=== PATIENT | female | born 1980 | race Caucasian/White ===

== ENCOUNTER → 2020-02-10 17:54 | Outpatient (CLI) | payer BC, SELFPAY ==
--- NOTE | ~2020-02-10 | XR_ITS ---
EXAMINATION: XR thoracic spine 3V EXAM DATE: 02/10/2020 19:30 INDICATION: Chronic mid back pain. TECHNIQUE: Frontal and lateral projections of the thoracic spine as well as lateral swimmers projecti on of the upper thoracic spine for interpretation. There is no prior study for comparison. FINDINGS: Linear right basilar subsegmental atelectasis. There is mild mid and lower thoracic disc d isease. The vertebral body and disc heights are otherwise well maintained. The vertebral bodies are a ligned in the AP dimension. No endplate change. There are no osteoblastic or osteolytic lesions ident ified. Paraspinal soft tissue is unremarkable. IMPRESSION: 1. Mild mid and lower thoracic spondylosis. 2. Right basilar subsegmental atelectasis. Reviewed, dictated and finalized at location A.
--- NOTE | ~2020-02-10 | XR_ITS ---
EXAMINATION: XR wrist LT min 3V EXAM DATE: 02/10/2020 19:30 INDICATION: No known recent injury provided at this time. Pain of the left wrist. TECHNIQUE: Left wrist frontal, frontal with ulnar deviation, oblique and lateral projections obtained and reviewed. There is no prior study for comparison. FINDINGS: Left wrist scapholunate joint space is maintained. There are no bony erosions identified. There are no acute fractures or dislocations identified. There is no subcutaneous gas. The soft tis blanche is unremarkable. There are no radiopaque foreign bodies. IMPRESSION: 1. Unremarkable left wrist exam. Reviewed, dictated and finalized at location A.
--- NOTE | ~2020-02-10 | XR_ITS ---
EXAMINATION: XR wrist RT min 3V EXAM DATE: 02/10/2020 19:30 INDICATION: No known recent injury provided at this time. Pain of the right wrist. TECHNIQUE: Right wrist frontal, frontal with ulnar deviation, oblique and lateral projections obtain ed and reviewed. There is no prior study for comparison. FINDINGS: Right wrist scapholunate joint space is maintained. There are no acute fractures or disloca tions identified. There is no subcutaneous gas. The soft tissue is unremarkable. There are no rad iopaque foreign bodies. There are no bony erosions identified. IMPRESSION: 1. Unremarkable right wrist exam. Reviewed, dictated and finalized at location A.
--- NOTE | ~2020-02-10 | XR_ITS ---
EXAMINATION: XR_RIBSBICXR1_CR EXAM DATE: 02/10/2020 19:30 INDICATION: Bilateral rib pain. TECHNIQUE: Frontal projection of the upper left ribs, frontal projection of the lower left ribs, obli que projection of the left ribs. Frontal projection of the upper right ribs, frontal projection of t he lower right ribs, oblique projection of the right ribs, frontal chest x-ray(s) for interpretation. There is no prior study for comparison. FINDINGS: There are no displaced acute rib fractures identified. There are no osteoblastic or osteo lytic lesions identified. Right basilar linear opacities consistent with subsegmental atelectasis. Th e lungs are otherwise clear. There is no pneumothorax suspected. There are no pleural effusions. Card iomediastinal silhouette is normal. IMPRESSION: 1. Unremarkable ribs. 2. Right basilar subsegmental linear atelectasis. Reviewed, dictated and finalized at location A.
== END ==
PROVIDERS: PCP Physician Assistant; Visit Provider Chiropractor
DX: M47.814 Spondylosis without myelopathy or radiculopathy, thoracic region (principal); J98.11 Atelectasis; M25.531 Pain in right wrist; M25.532 Pain in left wrist
CPT/HCPCS: 71111; 72072; 73110

== ENCOUNTER → 2020-04-23 11:41 | Outpatient (CLI) | payer BC, SELFPAY ==
--- NOTE | ~2020-04-23 | XR_ITS ---
EXAMINATION: XR knee LT 3V DATE: 04/23/2020 12:22 INDICATION: Arthralgia TECHNIQUE: Three views of the left knee were obtained. COMPARISON: 12/14/2017 FINDINGS: Alignment is normal. No fracture or osteochondral lesion. There is mild tricompartmental os teoarthritis characterized by tiny marginal osteophytes. No joint effusion/synovitis. Soft tissues a re unremarkable. IMPRESSION: 1. Mild osteoarthritis without acute osseous abnormality. Reviewed, dictated and finalized at location A. STRING WINDER
--- NOTE | ~2020-04-23 | XR_ITS ---
EXAMINATION: XR knee RT 3V DATE: 04/23/2020 12:22 INDICATION: Arthralgia TECHNIQUE: Three views of the left knee were obtained. COMPARISON: None. FINDINGS: Alignment is normal. No fracture or osteochondral lesion. There is mild tricompartmental os teoarthritis characterized by tiny marginal osteophytes. No joint effusion/synovitis. Soft tissues a re unremarkable. IMPRESSION: 1. Mild right knee osteoarthritis. Reviewed, dictated and finalized at location A. R SPOOLER
== END ==
PROVIDERS: Visit Provider Physician Assistant
DX: M17.0 Bilateral primary osteoarthritis of knee (principal)
CPT/HCPCS: 73562

== ENCOUNTER 2020-08-30 10:07 | Outpatient (CLI) | payer BC, SELFPAY ==
--- NOTE | 2020-08-30 12:00 | NEURO_ITS ---
Impression: # Complains of tingling and numbness in both hands. # Left mild Carpal Tunnel Syndrome. # No ulnar neuropathy. # Normal needle/EMG exam. # Clinical correlation recommended. Nerve Conduction Studies Anti Sensory Summary Table Stim Site NR Peak (ms) P-T Amp (?V) Site1 Site2 Delta-P (ms) Dist (cm) Boni (m/s) Left Median Anti Sensory (2-3nd Digit) Wrist 3.3 59.3 Wrist 2-3nd Digit 3.3 14.0 42 Wrist 3.3 64.8 Wrist 2-3nd Digit 3.3 14.0 42 Right Median Anti Sensory (2-3nd Digit) Wrist 3.9 12.6 Wrist 2-3nd Digit 3.9 14.0 36 Wrist 4.6 49.5 Wrist 2-3nd Digit 3.9 14.0 36 Left Radial Anti Sensory (Base 1st Digit) Wrist 2.4 25.0 Wrist Base 1st Digit 2.4 0.0 Right Radial Anti Sensory (Base 1st Digit) Wrist 2.4 24.4 Wrist Base 1st Digit 2.4 0.0 Left Ulnar Anti Sensory (5th Digit) Wrist 2.4 41.6 Wrist 5th Digit 2.4 14.0 58 Right Ulnar Anti Sensory (5th Digit) Wrist 2.3 53.9 Wrist 5th Digit 2.3 14.0 61 Motor Summary Table Stim Site NR Onset (ms) O-P Amp (mV) Site1 Site2 Delta-0 (ms) Dist (cm) Boni (m/s) Left Median Motor (Abd Poll Brev) Wrist 3.8 1.9 Elbow Wrist 4.4 26.0 59 Elbow 8.2 1.8 Right Median Motor (Abd Poll Brev) Wrist 3.2 4.9 Elbow Wrist 5.0 27.0 54 Elbow 8.2 3.1 Left Ulnar Motor (Abd Dig Minimi) Wrist 2.2 9.6 A Elbow Wrist 5.0 30.0 60 A Elbow 7.2 3.1 Right Ulnar Motor (Abd Dig Minimi) Wrist 2.3 9.0 A Elbow Wrist 4.7 27.0 57 A Elbow 7.0 3.6 F Wave Studies NR F-Lat (ms) L-R F-Lat (ms) Left Median (Mrkrs) (Abd Poll Brev) 29.01 0.76 Right Median (Mrkrs) (Abd Poll Brev) 29.77 0.76 Left Ulnar (Mrkrs) (Abd Dig Min) 27.02 1.47 Right Ulnar (Mrkrs) (Abd Dig Min) 25.55 1.47 EMG Side Muscle Nerve Root Ins Act Fibs Amp Dur Recrt Comment Right 1stDorInt Ulnar C8-T1 Nml Nml Nml Nml Nml Right Ext Indicis Radial (Post Int) C7-8 Nml Nml Nml Nml Nml Right Ext Digitorum Radial (Post Int) C7-8 Nml Nml Nml Nml Nml Right BrachioRad Radial C5-6 Nml Nml Nml Nml Nml Right PronatorTeres Median C6-7 Nml Nml Nml Nml Nml Right Abd Poll Brev Median C8-T1 Nml Nml Nml Nml Nml Left 1stDorInt Ulnar C8-T1 Nml Nml Nml Nml Nml Left Ext Indicis Radial (Post Int) C7-8 Nml Nml Nml Nml Nml Left Ext Digitorum Radial (Post Int) C7-8 Nml Nml Nml Nml Nml Left BrachioRad Radial C5-6 Nml Nml Nml Nml Nml Left PronatorTeres Median C6-7 Nml Nml Nml Nml Nml Left Abd Poll Brev Median C8-T1 Nml Nml Nml Nml Nml MTDD
== END 2020-08-30 10:08 | disposition home or self-care (01) ==
LOC: ANHNEURO 10:10
PROVIDERS: PCP Physician Assistant; Visit Provider Physician Assistant
DX: R20.0 Anesthesia of skin (principal); R20.2 Paresthesia of skin; G56.02 Carpal tunnel syndrome, left upper limb
CPT/HCPCS: 95886; 95911

== ENCOUNTER → 2020-12-15 08:53 | Outpatient (CLI) | payer BC, SELFPAY ==
--- NOTE | ~2020-12-15 | MM_ITS ---
EXAMINATION: MM screening tobi BI w rafael HISTORY: Screening mammogram TECHNIQUE: Craniocaudal and mediolateral oblique 3-D tomosynthesis images were obtained and synthetic 2-D images were generated. CAD analysis was submitted and interpreted. COMPARISON: No prior mammogram is available for comparison at this institution. BREAST PARENCHYMAL COMPOSITION: The breasts are almost entirely fatty. FINDINGS: There is no evidence of suspicious mass, calcification, or architectural distortion to sugg est malignancy in either breast. IMPRESSION: 1. No mammographic evidence of malignancy. 2. Recommend routine screening mammography in one year. BI-RADS Category 1: Negative Reviewed, dictated and finalized at location A.
== END ==
PROVIDERS: PCP Physician Assistant
DX: Z12.31 Encounter for screening mammogram for malignant neoplasm of breast (principal)
CPT/HCPCS: 77063; 77067

== ENCOUNTER → 2021-07-16 15:14 | Outpatient (CLI) | payer BC, SELFPAY ==
--- NOTE | ~2021-07-16 | CT_ITS ---
EXAMINATION: CT abdomen pelvis w con DATE: 07/16/2021 15:42 INDICATION: Left lower quadrant pain. TECHNIQUE: Computed tomography (CT) of the abdomen and pelvis was performed with 100 cc Omnipaque 350 intravenous contrast. The dose-length product was 1052.11 mGy-cm. Automated exposure control and ite rative reconstruction technique were employed. COMPARISON: None. FINDINGS: Heart size is normal. No significant pleural or pericardial effusion. No significant vascul ar abnormality. No lymphadenopathy. Small hiatal hernia. The liver, spleen, pancreas, adrenal glands and kidneys are unremarkable. Normal appendix. No free ai r or free fluid. No evidence for diverticulitis. No lymphadenopathy. No free air or free fluid. Small fat-containing umbilical hernia. No acute osseous abnormality. IMPRESSION: 1. No acute abdominal abnormality. Reviewed, dictated and finalized at location B.
== END ==
PROVIDERS: Visit Provider Physician Assistant
DX: R10.32 Left lower quadrant pain (principal)
CPT/HCPCS: 74177; Q9967

== ENCOUNTER → 2021-09-16 17:28 | Outpatient (CLI) | payer BC, SELFPAY ==
--- NOTE | ~2021-09-16 | XR_ITS ---
EXAMINATION: XR chest 2V Exam Date/Time: 09/16/2021 17:36 CDT CLINICAL HISTORY: Cough Comparison: 12/17/10. RESULT: Lines, tubes, and devices: None. Lungs and pleura: Clear. Cardiomediastinal silhouette: Stable cardiomediastinal silhouette. Other: No acute osseous or upper abdominal finding. IMPRESSION: No acute cardiopulmonary process Reviewed, dictated and finalized at location K.
== END ==
PROVIDERS: PCP Physician Assistant; Visit Provider Physician Assistant
DX: R05.1 Acute cough (principal)
CPT/HCPCS: 71046

== ENCOUNTER → 2022-06-12 14:07 | Outpatient (CLI) | payer BC, SELFPAY ==
--- NOTE | ~2022-06-12 | MM_ITS ---
EXAMINATION: MM screening tobi BI w rafael HISTORY: Screening mammogram TECHNIQUE: Craniocaudal and mediolateral oblique 3-D tomosynthesis images were obtained and synthetic 2-D images were generated. CAD analysis was submitted and interpreted. COMPARISON: 12/15/2020 bilateral screening mammogram BREAST PARENCHYMAL COMPOSITION: The breasts are almost entirely fatty. FINDINGS: There is no evidence of suspicious mass, calcification, or architectural distortion to sugg est malignancy in either breast. There has been no suspicious interval change. IMPRESSION: 1. No mammographic evidence of malignancy. 2. Recommend routine screening mammography in one year. BI-RADS Category 1: Negative Reviewed, dictated and finalized at location A. K TURNER
== END ==
PROVIDERS: PCP Physician Assistant
DX: Z12.31 Encounter for screening mammogram for malignant neoplasm of breast (principal)
CPT/HCPCS: 77063; 77067

== ENCOUNTER 2023-06-01 08:24 | Emergency (ER) | payer OTHER, SELFPAY ==
--- NOTE | ~2023-06-01 | CT_ITS ---
Clinical Indication: Chest pain CT Scan of the Chest with Contrast: Technique: Contiguous sections were acquired throughout the chest after intravenous administration of 100 cc of Omnipaque 350. Dose reduction technique was used on this scan by utilizing automated expos ure control and iterative reconstruction technique. The dose-length product (DLP) was 1132.57 mGy-cm. Findings: There is no evidence of any significant mediastinal, hilar or axillary lymphadenopathy. There is no f illing defect in the pulmonary arterial tree to suggest pulmonary embolus. There is no evidence of ao rtic dissection or aneurysm. There is no evidence of pleural or pericardial effusion. The lungs are clear. No pulmonary nodules or infiltrates are noted. Images through the upper abdomen reveal splenomegaly. Impression: No evidence of pulmonary embolus, aortic dissection, or aortic aneurysm. Clear lungs. Splenomegaly, of uncertain etiology. Reviewed, dictated and finalized at [facility]. REPAIRER Impression: No evidence of pulmonary embolus, aortic dissection, or aortic aneurysm. Clear lungs. Splenomegaly, of uncertain etiology.
--- NOTE | ~2023-06-01 | XR_ITS ---
Clinical Indication: Shortness of breath PA and lateral views of the chest: Comparison: 09/16/2021 Findings: The lungs are clear, without evidence of focal consolidation or pleural effusion. Cardiome diastinal silhouette is within normal limits. Bones and soft tissues are unremarkable. Impression: Normal chest. Reviewed, dictated and finalized at [facility]. HALMIC MEDICAL TECHNOLOGIST Impression: Normal chest.
[2023-06-01 08:29] VITALS: BP 179/88; PULSE 84; RESP 19; TEMP 36.3; O2SAT 100
--- NOTE | 2023-06-01 08:36 | ECG_ITS ---
Measurements Intervals [place] Rate: 69 P: 67 AL: 138 QRS: 24 QRSD: 91 T: 36 QT: 379 QTc: 406 Interpretive Statements SINUS RHYTHM WITH SINUS ARRHYTHMIA BASELINE ARTIFACT- I, II, III, AVF NORMAL ECG NO PREVIOUS ECG AVAILABLE FOR COMPARISON Electronically Signed On 06-01-2023 8:52:28 CLERICAL ADVISER by Nima Bradford D.O.
[2023-06-01 08:42] VITALS: O2SAT 100
[2023-06-01] MEDS: ASPIRIN 81 MG CHEWABLE TABLET 324 MG PO (08:45)
[2023-06-01 09:00] VITALS: PULSE 75
[2023-06-01 09:05] LABS: Basophils Percent Auto 0.1 % (0.2-1.2); Eosinophils Percent Auto 0.1 % (0-4.4); Hematocrit 38.6 % (37.0-47.0); Hemoglobin 11.9 g/dL (12.0-15.0); Immature Granulocyte Absolute 0.06 K/mm3 (0.00-0.031); Immature Granulocyte Percent A 0.8 % (0-0.5); Lymphocytes Absolute Auto 2.01 K/mm3 (0.9-3.2); Lymphocytes Percent Auto 27.1 % (18.3-44.2); Mean Corpuscular HGB Conc 30.8 g/dl (32-36); Mean Corpuscular Hemoglobin 24.9 pg (26-34); Mean Corpuscular Volume 80.8 fl (80-100); Mean Platelet Volume 10.4 fl (7.4-10.4); Monocytes Absolute Auto 0.9 K/mm3 (0.1-0.6); Neutrophils Absolute Auto 4.4 K/mm3 (1.3-6.7); Neutrophils Percent Auto 59.9 % (45.5-73.1); Platelet Count Result 324 k/mm3 (150-375); Red Blood Count 4.78 M/mm3 (4.2-5.4); Red Cell Distribution Width 14.1 % (11.5-14.5); White Blood Count 7.4 K/mm3 (4.5-10.0)
[2023-06-01 09:15] LABS: INR 0.9; Prothrombin Time 12.8 Seconds (11.1-14.7)
[2023-06-01 09:16] LABS: Partial Thromboplastin Time 31.4 SECONDS (22.3-36.8)
[2023-06-01 09:19] LABS: Alanine Aminotransferase 31 U/L (6-35); Albumin Level 4.1 g/dL (3.5-5.1); Alkaline Phosphatase 88 U/L (38-126); Anion Gap 5 mmol/L (8-16); Aspartate Amino Transferase 35 U/L (14-36); Bilirubin,Total 0.6 mg/dL (0.2-1.3); Blood Urea Nitrogen 18 mg/dL (7-17); Calcium 8.9 mg/dL (8.4-10.2); Carbon Dioxide 27 mmol/L (22-30); Chloride 105 mmol/L (98-107); Estimated CRCL calculation 139 ml/min; Estimated Glomerular Filt Rate > 60; Glucose 110 mg/dL (65-110); Lipase 174 U/L (23-300); Potassium 3.9 mmol/L (3.4-5.0); Sodium 137 mmol/L (137-145)
[2023-06-01 09:31] LABS: Troponin I < 0.012 ng/mL (0.000-0.034)
--- NOTE | 2023-06-01 09:43 | ED.CHESTPAIN ---
HPI - Chest Pain General Chief Complaint: Chest Pain Stated Complaint: chest pain Time Seen by Provider: 06/01/23 08:53 History of Present Illness HPI narrative: 43-year-old female presenting to the emergency department for evaluation of chest pain. 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 Patient denies any associated nausea vomiting or diaphoresis with this. Patient denies any prior history of PE or DVT, patient denies any prior cardiac history. Patient denies any associated abdominal pain. Patient was treated with aspirin and at time of evaluation patient states that she has no current chest pain or chest tightness and has no associated shortness of breath. Patient denies hypertension, high cholesterol and diabetes Related Data Allergies Allergy/AdvReac Type Severity Reaction Status Date / Time morphine AdvReac Nausea Verified 06/01/23 08:25 Review of Systems Review of Systems: All systems reviewed & are unremarkable except as noted in HPI and below Exam Narrative: APPEARANCE: Well appearing, no pain, no distress, well-nourished. HEAD: normocephalic, atraumatic. EYES: PERRLA/EOMI, conjunctivae clear. NOSE: Normal no drainage EARS:TMS clear with good light reflex. THROAT: Pharynx clear, no exudate. NECK: Supple. No adenopathy, no masses. RESPIRATORY: Airway patent, respirations nonlabored. Clear to auscultation bilaterally, no rales, rhonchi, wheezing. CARDIOVASCULAR: Regular rate and rhythm without murmurs rubs or gallops. ABDOMINAL: Soft, nontender, nondistended, normal bowel sounds MUSCULOSKELETAL: Moves all extremities. Strength/ROM intact, No edema, No calf tenderness. NEURO: Alert. Cranial nerves II through XII intact. Grossly intact SKIN: Warm, dry. Normal Color Course Course Emergency Course: 43-year-old female presented emergency department for evaluation of chest pain. Patient is afebrile with no leukocytosis and a stable hemoglobin patient's initial CMP had no acute abnormalities the patient's troponin was negative, patient had no elevation of her lipase. Chest x-ray showed normal chest. The EKG showed normal sinus rhythm with sinus arrhythmia with no evidence of infarct. Patient's D-dimer is elevated at 1.14 patient had negative serial troponins. CTA chest was ordered due to the elevated dimer and showed no evidence of pulmonary embolism. Patient was updated results of her workup patient was encouraged close follow-up with her primary care physician for additional outpatient cardiac testing. Vital Signs Vital signs: Vital Signs Temperature 97.4 F L 06/01/23 08:29 Pulse Rate 84 06/01/23 08:29 Respiratory Rate 19 06/01/23 08:29 Blood Pressure 179/88 H 06/01/23 08:29 Pulse Oximetry 100 06/01/23 08:29 Oxygen Delivery Room Air 06/01/23 08:29 Temperature 97.4 F L 06/01/23 08:29 Pulse Rate 74 06/01/23 11:12 Respiratory Rate 18 06/01/23 11:12 Blood Pressure 160/99 H 06/01/23 11:12 Pulse Oximetry 100 06/01/23 11:12 Oxygen Delivery Room Air 06/01/23 08:42 MDM - Chest Pain Differential Diagnosis Differential diagnosis: Likely pneumothorax, stable angina, unstable angina pectoris, atypical chest pain, st elevation myocardial infarction, costochondritis, chest pain and biliary colic Lab Data Attestation: I reviewed the patient's lab results. 06/01/23 08:58 06/01/23 08:58 Labs: Lab Results 06/01/23 06/01/23 Range/Units 08:58 11:48 WBC 7.4 (4.5-10.0) K/mm3 RBC 4.78 (4.2-5.4) M/mm3 Hgb 11.9 L (12.0-15.0) g/dL Hct 38.6 (37.0-47.0) % MCV 80.8 (80-100) fl MCH 24.9 L (26-34) pg MCHC 30.8 L (32-36) g/dl RDW 14.1 (11.5-14.5) % Plt Count 324 (150-375) k/mm3 MPV 10.4 (7.4-10.4) fl Immature Gran % (Auto) 0.8 H (0-0.5) % Neut % (Auto) 59.9 (45.5-73.1) % Lymph % (Auto) 27.1 (18.3-44.2) % [place] % (Auto) 12.0 H (2
[2023-06-01 09:46] VITALS: BP 175/103; PULSE 69; RESP 18; O2SAT 99
[2023-06-01 09:55] LABS: D Dimer 1.14 ug/mL (<0.48)
[2023-06-01 11:12] VITALS: BP 160/99; PULSE 74; RESP 18; O2SAT 100
--- NOTE | 2023-06-01 12:10 | ECG_ITS ---
Measurements Intervals [place] Rate: 69 P: 53 [place]: 135 QRS: 17 QRSD: 92 T: 22 QT: 397 QTc: 428 Interpretive Statements SINUS RHYTHM POSSIBLE LEFT ATRIAL ENLARGEMENT BASELINE ARTIFACT- I, II BORDERLINE ECG COMPARED TO ECG 06/01/2023 08:41:03 NO SIGNIFICANT CHANGES Electronically Signed On 06-01-2023 13:09:52 [facility] by Nima Bradford D.O.
[2023-06-01 12:21] LABS: Troponin I < 0.012 ng/mL (0.000-0.034)
== END 2023-06-01 12:56 | disposition home or self-care (01) ==
PROVIDERS: Emergency Provider Emergency Medicine; PCP Physician Assistant
DX: R07.89 Other chest pain (principal)
CPT/HCPCS: 36415; 71046; 71275; 80053; 81025; 83690; 84484; 85025; 85380; 85610; 85730; 93005; 99284; A9270; Q9967

== ENCOUNTER 2023-08-27 08:19 | Emergency (ER) | payer OTHER, SELFPAY ==
--- NOTE | 2023-08-27 08:42 | ED.GENADULT ---
HPI - General Adult General Chief complaint: Upper Respiratory Infection Stated complaint: SORE THROAT/HEADACHE/BODY ACHES/FEVER/CHILLS Source: patient, RN notes reviewed and old records reviewed Mode of arrival: ambulatory Limitations: no limitations History of Present Illness HPI narrative: 43-year-old female presents to [facility] with complaints fever, chills, myalgia, sore throat that started on Thursday. Patient states vomited 1 time. Patient taking home medications with little relief. Related Data Home Medications Medication Instructions Recorded Confirmed cetirizine 10 mg tablet (Zyrtec) 10 mg PO DAILY 08/27/23 08/27/23 escitalopram oxalate 20 mg tablet mg 08/27/23 loratadine 10 mg tablet (Claritin) mg 08/27/23 meloxicam 15 mg tablet mg 08/27/23 montelukast 10 mg tablet mg 08/27/23 omeprazole magnesium 20 mg 20 mg PO DAILY 08/27/23 08/27/23 tablet,delayed release (Prilosec OTC) Allergies Allergy/AdvReac Type Severity Reaction Status Date / Time morphine AdvReac Nausea Verified 08/27/23 08:54 Review of Systems Constitutional: Constitutional: Reports no additional constitutional complaints, Reports body ache(s), Denies chills, Reports fatigue, Reports fever(s) and Denies headache(s) Eyes: Eyes: Reports no additional eye complaints and Denies blurry vision ENT: Reports system reviewed and no additional complaints, except as documented, Denies vertigo, Denies dizziness, Denies ear discharge, Denies otalgia, Denies facial pain, Denies headache(s), Denies nasal congestion, Reports nasal discharge, Denies sinus pain, Denies sinus pressure and Reports sore throat Cardiovascular: Cardiovascular: Reports no additional cardiovascular complaints, Denies chest pain, Denies chest pain at rest, Denies rapid heart rate and Denies dyspnea Respiratory: Respiratory: Reports no additional respiratory complaints, Denies chest congestion, Reports cough, Denies pain on inspiration, Denies pain with cough and Denies dyspnea Gastrointestinal: Gastrointestinal: Denies abdominal pain, Denies diarrhea, Reports nausea and Reports vomiting Integumentary/Breasts: Skin/Breast: Denies rash Neurologic: Reports system reviewed and no additional complaints, except as documented, Denies vertigo, Denies dizziness and Denies headache(s) Endocrine: Endocrine: Denies fatigue PMFSH Comments At the time of my signature, I reviewed and agree with the nursing past medical, surgical, social, and family history. There is no relevant family history pertinent to the patient complaint. Exam Const: General: cooperative, healthy appearing, no acute distress and well nourished Nutritional Appearance: well nourished Orientation/consciousness: patient oriented x3 Limitations: no limitations HENMT: Head: normal to inspection and normocephalic Ears: external ears normal, TM's normal bilaterally, EAC's normal and mastoids normal Face/Nose/Sinus: Normal nasal mucous membranes and turbinates present, normal facial exam and sinuses nontender Face and sinus: normal facial exam Mouth: Yes Normal oral and palatal mucosa present, Yes oropharynx normal and Yes moist mucous membranes Throat: tonsils normal, uvula midline, no peritonsillar masses, posterior oropharynx abnormal erythema, postnasal drainage and no uvular edema Eyes: General: appearance normal, both eyes and all related structures Sclera: sclerae normal Pupils: Equal, round and reactive pupils present Resp: Effort & Inspection: normal respiratory effort, able to speak in complete sentences, no audible wheezes, no cough, no respiratory distress and no retractions Auscultation: clear to auscultation bilaterally, no crackles, no rales, no rhonchi and no wheezes Cardio: Rate: regular rate Rhythm: regular rhythm Skin: General skin exam: normal color and no rashes or lesions noted Neuro: General: patient oriented x3 Cranial nerves: Yes Equal, round and reactive pupils present Psych: Appeara
[2023-08-27 08:56] VITALS: BP 149/108; PULSE 104; RESP 16; TEMP 36.1; O2SAT 99
== END 2023-08-27 09:46 | disposition home or self-care (01) ==
PROVIDERS: Emergency Provider Registered Nurse; PCP Physician Assistant
DX: J02.0 Streptococcal pharyngitis (principal)
CPT/HCPCS: 87880; 99213; G0463

== ENCOUNTER 2023-09-13 09:42 | Emergency (ER) | payer OTHER, SELFPAY ==
[2023-09-13 09:48] VITALS: BP 148/78; PULSE 92; RESP 16; TEMP 36.9; O2SAT 100
--- NOTE | 2023-09-13 09:52 | ED.URI ---
HPI - URI/Sore Throat General Chief Complaint: Upper Respiratory Infection Stated Complaint: Sore Throat/Cough History of Present Illness HPI Narrative: 43-year-old female presented for complaint of sore throat hoarse voice over the past few days. Patient was treated for strep throat 08/27/2023 and reports completion of antibiotic. Endorses children with similar symptoms. Denies shortness of breath, wheezing, nausea, vomiting, diarrhea, fevers or chills. Related Data Home Medications Medication Instructions Recorded Confirmed cetirizine 10 mg tablet (Zyrtec) 10 mg PO DAILY 08/27/23 09/13/23 escitalopram oxalate 20 mg tablet 20 mg PO DAILY 08/27/23 09/13/23 loratadine 10 mg tablet (Claritin) 10 mg PO DAILY 08/27/23 09/13/23 meloxicam 15 mg tablet 15 mg PO DAILY 08/27/23 09/13/23 montelukast 10 mg tablet 10 mg PO DAILY 08/27/23 09/13/23 omeprazole magnesium 20 mg 20 mg PO DAILY 08/27/23 09/13/23 tablet,delayed release (Prilosec OTC) Allergies Allergy/AdvReac Type Severity Reaction Status Date / Time morphine AdvReac Nausea Verified 09/13/23 09:51 Review of Systems Review of Systems: CONSTITUTIONAL: Denies body aches, reports fever, chills EYES: Denies visual changes, redness, or discharge. ENT: Reports sore throat denies rhinorrhea, congestion, or otalgia. CARDIOVASCULAR: Denies chest pain, palpitations, or edema. RESPIRATORY: Denies dyspnea. GASTROINTESTINAL: Denies abdominal pain, nausea, vomiting, or diarrhea. SKIN: Denies rash, itching, or wounds. MUSCULOSKELETAL: Denies back pain, joint pain, or myalgia. NEUROLOGIC: Denies headache Exam Narrative: GENERAL: Mildly Ill-appearing, no acute distress. EYES: conjunctivae clear ENT: Mucous membranes moist. TMs pearly franco with normal light reflex bilaterally; no tragal tenderness. Oropharynx erythematous without lesions. Tonsils enlarged 1+ and without exudate. No drooling, no hoarseness, no trismus, uvula midline. No tripod positioning, hot potato voice, or soft palate swelling. NECK: Supple. No lymphadenopathy CHEST: Clear to auscultation, breath sounds equal. No respiratory distress, speaks in full sentences. HEART: Regular rate and rhythm. No murmur heard. SKIN: Warm, dry, no rash. NEURO: Alert and oriented x3. Course Course Emergency Course: Patient is aware of diagnosis, understands and agrees to treatment plan. Anticipatory guidance given. Patient agrees to follow-up as directed and is aware of reasons to seek care at the emergency department. Portions of this record may have been created with voice recognition software Level of Care: Express Care Visit Vital Signs Vital signs: Vital Signs Temperature 98.4 F 09/13/23 09:48 Pulse Rate 92 09/13/23 09:48 Respiratory Rate 16 09/13/23 09:48 Blood Pressure 148/78 H 09/13/23 09:48 Pulse Oximetry 100 09/13/23 09:48 Temperature 98.4 F 09/13/23 09:48 Pulse Rate 92 09/13/23 09:48 Respiratory Rate 16 09/13/23 09:48 Blood Pressure 148/78 H 09/13/23 09:48 Pulse Oximetry 100 09/13/23 09:48 MDM - URI/Sore Throat MDM Narrative Medical decision making narrative: POS strep result reviewed with pt. Rx augmentin. Advise supportive treatments. Patient is appropriate for outpatient treatment and follow-up. Differential Diagnosis Differential diagnosis: Likely upper respiratory infection, viral infection and pharyngitis Discharge Plan Discharge Clinical Impression: Strep pharyngitis Patient Disposition: Home, Self-Care Condition: Stable Instructions: Antibiotic Form, Strep Throat (ED) Additional Instructions: - Take the antibiotic as directed. Fever and sore throat typically resolve within one to three days. Most patients can return to work, after 12 to 24 hours of antibiotic therapy, provided you are fever free and otherwise well. -Eat and drink things that are easy to swallow, like soft foods, cool liquids, tea with honey, or pops
== END 2023-09-13 10:12 | disposition home or self-care (01) ==
PROVIDERS: Emergency Provider Nurse Practitioner Family; PCP Physician Assistant
DX: J02.0 Streptococcal pharyngitis (principal)
CPT/HCPCS: 87880; 99213; G0463

== ENCOUNTER 2023-10-19 08:56 | Outpatient (CLI) | payer OTHER, SELFPAY ==
--- NOTE | 2023-11-10 14:45 | WPDHOMESLEEP ---
Sleep Study - Home Unattended Date of Study: 10/19/23 Ordering Provider: Cheri Puente, PAValerie Interpreting Provider: Jennyfer Meyers, DO Home Sleep Study Type: Watch PAT Height: 1.63 m Weight: 122.47 kg Body Mass Index: 46.3 Neck Circumference (inches): 14.25 [place]: 15 Reason for Sleep Study Daytime hypersomnia. Previously diagnosed with sleep apnea and used CPAP for 1 year before discontinuing. Sleep History The patient is a 43-year-old female that had a sleep study ordered by her primary care for evaluation of sleep apnea. The patient rarely awakens from sleep short of breath. She frequently awakens at night with heartburn, belching or cough. She frequently snores and it is frequently loud enough that others complain. She occasionally has trouble sleeping when she has a cold. She rarely wakes up gasping for air throughout the night. He occasionally has breathing problems at night observed by herself or others. She occasionally sweats excessively at night. She denies having heart palpitations or irregular heartbeats during the night. She occasionally falls asleep during the day and occasionally falls asleep while driving. She denies sleep paralysis, cataplexy and hypnagogic / hypnopompic hallucinations. She rarely has trouble at school or work due to sleepiness. She denies feeling afraid of going to sleep. She occasionally has nightmares. She occasionally remembers her dreams. She occasionally has thoughts racing through her mind. She rarely feels sad or depressed. She frequently has anxiety. She frequently has muscular tension. She occasionally notices parts of her body jerk. She denies kicking during the night. She rarely has crawling and aching feelings in her legs and rarely has leg pain during the night. She occasionally grinds her teeth during sleep but rarely awakens with morning jaw pain. She is frequently bothered by pain during the day and occasionally awakened by pain during the night. She frequently wakes up feeling stiff in the morning. She frequently wakes up with sore or achy muscles. She frequently wakes up with pain in the neck, spine and other joints. She goes to bed at 9:00 p.m. on weekdays and at 10:00 p.m. on the weekends. It takes her 30 minutes to fall asleep. She wakes up 2-3 times throughout the night to urinate and is able fall back asleep within 10 minutes. He wakes up at 6:00 a.m. on weekdays and at 8:30 a.m. on the weekends. She typically gets 8-10 hours of sleep per night. She will stay in bed for 5 minutes after waking up in the morning. She currently lives with her and 4 children. She denies consuming any caffeinated beverages within 2 hours of bedtime. She denies engaging in physical exercise before bedtime. She will read watch television before falling asleep. She will occasionally take naps in the afternoon or the evening but they are not refreshing. She consumes 3 caffeinated beverages per day. She consumes alcoholic beverages twice per month. She quit smoking cigarettes 15 years ago. She denies recreational drug use. [facility] Past Medical History Medical History (Updated 11/10/23 @ 14:47 by Jennyfer Meyers DO) DIANNE (obstructive sleep apnea) Medications Home Medications Medication Instructions Recorded Confirmed Type cetirizine 10 mg tablet (Zyrtec) 10 mg PO DAILY 08/27/23 09/13/23 History escitalopram oxalate 20 mg tablet 20 mg PO DAILY 08/27/23 09/13/23 History loratadine 10 mg tablet (Claritin) 10 mg PO DAILY 08/27/23 09/13/23 History meloxicam 15 mg tablet 15 mg PO DAILY 08/27/23 09/13/23 History montelukast 10 mg tablet 10 mg PO DAILY 08/27/23 09/13/23 History omeprazole magnesium 20 mg 20 mg PO DAILY 08/27/23 09/13/23 History tablet,delayed release (Prilosec OTC) amoxicillin 875 mg-potassium 1 tablet PO Q12H 7 days #14 tabs 09/13/23 Rx clavulanate 125 mg tablet Sleep Procedure The sleep study was completed using [email or web address] a
[2023-11-10 14:53] VITALS: BMI 46.3
== END 2023-10-20 13:20 | disposition home or self-care (01) ==
LOC: ANHCSM 08:58
PROVIDERS: PCP Physician Assistant; Visit Provider Physician Assistant
DX: G47.33 Obstructive sleep apnea (adult) (pediatric) (principal)
CPT/HCPCS: 95800

== ENCOUNTER 2024-01-22 07:58 | Outpatient (CLI) | payer OTHER, SELFPAY ==
--- NOTE | 2024-02-11 11:51 | WPDSLEEPSTUD ---
Sleep Study Date of Study: 01/22/24 Ordering Provider: Cheri Puente, NICOLÁS Interpreting Physician: Louisa Fermin MD Sleep Study Type: CPAP Titration Height: 1.63 m Weight: 122.47 kg Body Mass Index: 46.3 Neck Circumference (inches): 14.25 [place]: 15 Reason for Sleep Study Daytime hypersomnia. Previously diagnosed with sleep apnea and used CPAP for 1 year before discontinuing. Sleep History Lyly Wagner is a 43-year-old female who had a home sleep test 10/19/2023 with severe obstructive sleep apnea, an apnea hypopnea index of 51.1 and desaturation to 79%. She presents now for a CPAP titration. The history os obtained from her October 2023 survey. She rarely awakens from sleep feeling short of breath. She frequently awakens at night with heartburn, belching or coughing. She frequently snores and it is frequently loudly enough that others complain. She occasionally has trouble sleeping when she has a cold. She rarely wakes up gasping for air throughout the night. He occasionally has breathing problems at night observed by herself or others. She occasionally sweats excessively at night. She denies having heart palpitations or irregular heartbeats during the night. She occasionally falls asleep during the day and occasionally falls asleep while driving. She denies sleep paralysis, cataplexy and hypnagogic / hypnopompic hallucinations. She rarely has trouble at school or work due to sleepiness. She denies feeling afraid of going to sleep. She occasionally has nightmares. She occasionally remembers her dreams. She occasionally has thoughts racing through her mind. She rarely feels sad or depressed. She frequently has anxiety. She frequently has muscular tension. She occasionally notices parts of her body jerk. She denies kicking during the night. She rarely has crawling and aching feelings in her legs and rarely has leg pain during the night. She occasionally grinds her teeth during sleep but rarely awakens with morning jaw pain. She is frequently bothered by pain during the day and occasionally awakened by pain during the night. She frequently wakes up feeling stiff in the morning. She frequently wakes up with sore or achy muscles. She frequently wakes up with pain in the neck, spine and other joints. She goes to bed at 9:00 p.m. on weekdays and at 10:00 p.m. on the weekends. It takes her 30 minutes to fall asleep. She wakes up 2-3 times throughout the night to urinate and is able fall back asleep within 10 minutes. He wakes up at 6:00 a.m. on weekdays and at 8:30 a.m. on the weekends. She typically gets 8-10 hours of sleep per night. She will stay in bed for 5 minutes after waking up in the morning. She currently lives with her and 4 children. She denies consuming any caffeinated beverages within 2 hours of bedtime. She denies engaging in physical exercise before bedtime. She will read watch television before falling asleep. She will occasionally take naps in the afternoon or the evening but they are not refreshing. She consumes 3 caffeinated beverages per day. She consumes alcoholic beverages twice per month. She quit smoking cigarettes 15 years ago. She denies recreational drug use. [facility] Past Medical History Medical History DIANNE (obstructive sleep apnea) Social History Social History (Updated 02/11/24 @ 11:54 by Louisa Fermin MD) Smoking status: Former smoker Medications Home Medications Medication Instructions Recorded Confirmed Type cetirizine 10 mg tablet (Zyrtec) 10 mg PO DAILY 08/27/23 09/13/23 History escitalopram oxalate 20 mg tablet 20 mg PO DAILY 08/27/23 09/13/23 History loratadine 10 mg tablet (Claritin) 10 mg PO DAILY 08/27/23 09/13/23 History meloxicam 15 mg tablet 15 mg PO DAILY 08/27/23 09/13/23 History montelukast 10 mg tablet 10 mg PO DAILY 08/27/23 09/13/23 History omeprazole magnesium 20 mg 20 mg PO DAILY 08/27/23 05
[2024-02-22 08:32] VITALS: BMI 46.3
== END 2024-01-23 06:59 | disposition home or self-care (01) ==
LOC: ANHCSM 07:59
PROVIDERS: PCP Physician Assistant; Visit Provider Physician Assistant
DX: G47.33 Obstructive sleep apnea (adult) (pediatric) (principal); Z68.42 Body mass index [BMI] 45.0-49.9, adult
CPT/HCPCS: 95811

== ENCOUNTER 2024-02-24 12:44 | Outpatient (CLI) | payer OTHER, SELFPAY ==
--- NOTE | ~2024-02-24 | XR_ITS ---
XR chest 2V 02/24/2024 13:17 Indication: Cough and low back pain Procedure: 2 view chest Comparison: 06/01/2023 Findings: Heart size normal. There is left basilar atelectasis. No focal pneumonia, edema, pleural ef fusion or pneumothorax. Impression: 1: Left basilar atelectasis. Reviewed, dictated and finalized at location B. Impression: 1: Left basilar atelectasis.
--- NOTE | ~2024-02-24 | XR_ITS ---
EXAMINATION: XR lumbar spine 2-3V DATE: 02/24/2024 13:17 INDICATION: Low back pain TECHNIQUE: Anteroposterior and lateral views of the lumbar spine, and cone-down lateral view of the l umbosacral junction were obtained. COMPARISON: Lumbar spine radiographs dated 11/08/[address] abdomen and pelvis dated 07/16/2021 FINDINGS: Alignment is normal. Vertebral body heights are normal. Heights are normal. There is moderate disc he ight loss at T7-T8 through T11-T12 and mild disc height loss at T12-L1. Mild facet osteoarthritis in the mid to lower lumbar spine. Mild bilateral sacroiliac osteoarthritis. Visualized lung bases are cl ear with no pleural effusion. IMPRESSION: 1. Moderate lower thoracic spondylosis and mild at the lower lumbar facet osteoarthritis. 2. Mild bilateral sacroiliac osteoarthritis. Reviewed, dictated and finalized at location A. IMPRESSION: 1. Moderate lower thoracic spondylosis and mild at the lower lumbar facet osteo arthritis. 2. Mild bilateral sacroiliac osteoarthritis.
== END 2024-02-24 12:45 | disposition home or self-care (01) ==
PROVIDERS: PCP Physician Assistant; Visit Provider Physician Assistant
DX: J98.11 Atelectasis (principal); M47.816 Spondylosis without myelopathy or radiculopathy, lumbar region; M47.814 Spondylosis without myelopathy or radiculopathy, thoracic region; M46.98 Unspecified inflammatory spondylopathy, sacral and sacrococcygeal region
CPT/HCPCS: 71046; 72100

== ENCOUNTER 2024-06-15 13:50 | Outpatient (CLI) | payer OTHER, SELFPAY ==
--- NOTE | ~2024-06-15 | MR_ITS ---
EXAMINATION: MR lumbar spine wo con DATE: 06/15/2024 14:22 INDICATION: Lumbago TECHNIQUE: Magnetic resonance imaging (MRI) of the lumbar spine was performed without intravenous con trast. Sequences included sagittal T2-weighted FSE, sagittal T2-weighted FS FSE, sagittal T1-weighted FSE, and axial T2-weighted FSE. COMPARISON: Lumbar spine radiographs dated 02/24/2024 FINDINGS: Alignment is normal. Chronic appearing likely physiologic mild anterior wedging at T11 and T12. Lumba r vertebral body heights are normal. Severe disc height loss with associated anterior fibrofatty and fibrovascular degenerative endplate changes at T11-T12. The remaining discs from T10-T11 through L5-S 1 are normal. The conus medullaris terminates at L1-L2. There is normal signal in the caudal spinal c ord. Paravertebral soft tissues are unremarkable. The following disc levels are specifically discusse d: T11-T12: Disc is mildly bulging. There is mild bilateral facet osteoarthritis. There is no neural for aminal stenosis. There is minimal central canal stenosis. T12-L1: The disc does not extend beyond the endplate margin. There is mild bilateral facet joint oste oarthritis. There is no neural foraminal stenosis. There is no central canal stenosis. L1-L2: The disc does not extend beyond the endplate margin. There is mild bilateral facet joint osteo arthritis. There is no neural foraminal stenosis. There is no central canal stenosis. L2-L3: Minimal bilateral foraminal zone disc protrusions. There is mild to moderate bilateral facet j oint osteoarthritis. There is minimal bilateral neural foraminal stenosis. There is no central canal stenosis. L3-L4: Disc is mildly bulging. There is moderate right and mild to moderate left facet joint osteoart hritis. There is mild bilateral neural foraminal stenosis. There is no central canal stenosis. L4-L5: Disc is bulging. There is mild bilateral facet joint osteoarthritis. There is mild bilateral n eural foraminal stenosis. There is mild central canal stenosis. L5-S1: Annular fissure and minimal central disc protrusion. There is mild to moderate bilateral facet joint osteoarthritis. There is no neural foraminal stenosis. There is no central canal stenosis. IMPRESSION: 1. Severe spondylosis at T11-T12. Minimal lumbar spondylosis. Reviewed, dictated and finalized at location A. [employer]
== END 2024-06-15 13:51 | disposition home or self-care (01) ==
LOC: MICIMG 13:50
PROVIDERS: PCP Physician Assistant; Visit Provider Nurse Practitioner Family
DX: M47.814 Spondylosis without myelopathy or radiculopathy, thoracic region (principal); M54.50 Low back pain, unspecified
CPT/HCPCS: 72148

== ENCOUNTER 2024-07-08 15:21 | Outpatient (CLI) | payer OTHER, SELFPAY ==
--- NOTE | ~2024-07-08 | MM_ITS ---
EXAMINATION: MM screening [facility] BI w rafael HISTORY: Screening TECHNIQUE: Craniocaudal and mediolateral oblique 3-D tomosynthesis images were obtained and synthetic 2-D images were generated. CAD analysis was submitted and interpreted. COMPARISON: 06/12/2022 and 12/15/2020 BREAST PARENCHYMAL COMPOSITION: There are scattered areas of fibroglandular density. FINDINGS: Punctate calcifications are detected bilaterally, stable and benign in appearance. Otherwise parenchymal pattern without suspicious microcalcifications, architectural distortion, discr ete masses or significant asymmetry. IMPRESSION: 1. No mammographic/tomographic evidence of malignancy. 2. Recommend routine screening mammography in one year. BI-RADS Category 2: Benign finding(s). Reviewed, dictated and finalized at location A. [employer]
== END 2024-07-08 15:22 | disposition home or self-care (01) ==
PROVIDERS: Visit Provider Physician Assistant
DX: Z12.31 Encounter for screening mammogram for malignant neoplasm of breast (principal)
CPT/HCPCS: 77063; 77067

== ENCOUNTER 2024-11-10 10:18 | Outpatient (CLI) | payer OTHER, SELFPAY ==
--- NOTE | ~2024-11-10 | MR_ITS ---
MRI of the right knee Clinical history: Pain Technique: Coronal proton density and proton density-weighted images, sagittal proton-density and T2 fat-sat images, and axial proton-density fat-saturated images were acquired. Findings: Anterior and posterior cruciate ligaments are intact. Medial collateral ligament and the la teral collateral ligament complex are intact. Popliteus tendon is intact. Medial and lateral menisci are intact, without evidence of tear. There is high-grade chondromalacia at the patellar apex with developing subchondral cystic change/mar row edema. There is mild chondral thinning in the medial lateral joint lines. Small tricompartmental osteophytes are present. Extensor mechanism is intact. There is small joint effusion. No Pena's cyst. Impression: Mild tricompartmental degenerative change, as detailed above. No ligamentous injury or meniscal tear. Reviewed, dictated and finalized at [facility]. Impression: Mild tricompartmental degenerative change, as detailed above. No ligamentous injury or meniscal tear.
== END 2024-11-10 10:19 | disposition home or self-care (01) ==
LOC: MICIMG 10:21
PROVIDERS: PCP Nurse Practitioner Family; Visit Provider Nurse Practitioner Family
DX: M17.11 Unilateral primary osteoarthritis, right knee (principal)
CPT/HCPCS: 73721